=== PATIENT | female | born 1950 | race Caucasian/White ===

== ENCOUNTER 2016-11-03 17:04 | Observation (INO) | payer MEDICARE ==
[~2016-11-03] VITALS: Ht 152.4 cm; Wt 67.6 kg
[2016-11-03 19:00] LABS: RED BLOOD COUNT 4.42 M/UL (4.00-5.10); WHITE BLOOD COUNT 9.6 K/UL (4.5-11.0)
[2016-11-03 19:28] LABS: BUN/CREATININE RATIO 27 (0-10)
[2016-11-04 05:42] LABS: HEMOGLOBIN 12.5 gm/dl (12.3-15.3); RED BLOOD COUNT 4.25 M/UL (4.00-5.10)
[2016-11-04 06:16] LABS: BUN/CREATININE RATIO 31 (0-10)
[2016-11-04] MEDS ORDERED: ASPIR-LOW81 MG PO (10:16)
[2016-11-04] MEDS ORDERED: TENORMIN 25 MG25 MG PO (10:16)
[2016-11-04] MEDS ORDERED: PLAVIX 75 MG TA75 MG PO (10:16)
[2016-11-04] MEDS ORDERED: CALCIUM600 MG PO (10:18)
[2016-11-04] MEDS ORDERED: PLAQUENIL 200200 MG PO (10:18)
[2016-11-04] MEDS ORDERED: LISINOPRIL10 MG PO (10:19)
[2016-11-04] MEDS ORDERED: INVOKANA300 MG PO (10:19)
[2016-11-04] MEDS ORDERED: CLARITIN10 M2 PO (10:19)
[2016-11-04] MEDS ORDERED: GLUCOPHAGE1000 MG PO (10:20)
[2016-11-04] MEDS ORDERED: ZANTAC 150 MG150 MG PO (10:21)
[2016-11-04] MEDS ORDERED: PROAIR HFA8.5 GM INH (10:21)
[2016-11-04] MEDS ORDERED: TYLENOL 500 MG500 MG PO (10:22)
[2016-11-04] MEDS ORDERED: TRADJENTA5 MG PO (10:22)
== END 2016-11-04 17:15 | disposition home or self-care (01) ==
LOC: ER1 17:04 → ZEROF 21:44
PROVIDERS: Physician Assistant; ADMIT Internal Medicine
DX: R07.9 Chest pain, unspecified (principal); I25.10 Atherosclerotic heart disease of native coronary artery without angina pectoris; E11.40 Type 2 diabetes mellitus with diabetic neuropathy, unspecified; E11.22 Type 2 diabetes mellitus with diabetic chronic kidney disease; I12.9 Hypertensive chronic kidney disease with stage 1 through stage 4 chronic kidney disease, or unspecified chronic kidney disease; N18.9 Chronic kidney disease, unspecified; M19.90 Unspecified osteoarthritis, unspecified site; Z87.891 Personal history of nicotine dependence; Z79.01 Long term (current) use of anticoagulants; Z79.82 Long term (current) use of aspirin; Z79.899 Other long term (current) drug therapy; Z98.890 Other specified postprocedural states
CPT/HCPCS: 36415; 71020; 71275; 80048; 80053; 82550; 82553; 83874; 84484; 85025; 86618; 93005; 96372; 99285; G0378; J1650; J7050; Q9963

== ENCOUNTER → 2021-02-01 | Outpatient (CLI) | payer OTHER ==
[~2021-02-01] MED LIST: ASPIR-LOW81 MG PO; CALCIUM600 MG PO; CATAPRES 0.1MG0.1 MG PO; CLARITIN10 M2 PO; GLUCOPHAGE1000 MG PO; INVOKANA300 MG PO; LISINOPRIL10 MG PO; PLAQUENIL 200200 MG PO; PLAVIX 75 MG TA75 MG PO; PROAIR HFA8.5 GM INH; TENORMIN 25 MG25 MG PO; TRADJENTA5 MG PO; TYLENOL 500 MG500 MG PO; ZANTAC 150 MG150 MG PO
== END ==
LOC: RAD 12:42
DX: M79.672 Pain in left foot (principal); M19.072 Primary osteoarthritis, left ankle and foot
CPT/HCPCS: 73630